=== PATIENT | female | born 1995 | race Hispanic/Latino ===

== ENCOUNTER → 2017-06-14 | Outpatient (CLI) | payer OTHER | LOC: M CARPUL 07:07 | DX: R06.02 Shortness of breath (principal) ==

== ENCOUNTER → 2017-07-06 | Outpatient (CLI) | payer OTHER ==
[~2017-07-06] MED LIST: METHACHOLINE KIT (J7674) INH
== END ==
LOC: M CARPUL 09:20
DX: R06.02 Shortness of breath (principal)

== ENCOUNTER 2017-09-15 11:29 | Emergency (ER) | payer OTHER ==
[2017-09-15] MEDS: LIDOCAINE 2% W/EPIN INJ 20ML **PRES FREE INJ (12:26)
== END 2017-09-15 13:00 | disposition home or self-care (01) ==
LOC: M ED 11:29
DX: S61.411A Laceration without foreign body of right hand, initial encounter (principal); W26.8XXA Contact with other sharp object(s), not elsewhere classified, initial encounter; Y92.89 Other specified places as the place of occurrence of the external cause
CPT/HCPCS: 12002

== ENCOUNTER 2017-11-12 11:16 | Day surgery (SDC) | payer OTHER ==
[~2017-11-12 11:16] MED LIST changes: +LIDOCAINE 2% INJ 100 MG/5 ML SDV (FOR ANES.) As Ordered; -METHACHOLINE KIT (J7674) INH; +PROPOFOL 200 MG/20 ML VIAL As Ordered
[2017-11-12] MEDS: NS 1,000 ML IV (11:27)
== END 2017-11-12 13:59 | disposition home or self-care (01) ==
LOC: M OPP 11:16
DX: K21.9 Gastro-esophageal reflux disease without esophagitis (principal); K29.70 Gastritis, unspecified, without bleeding; J45.909 Unspecified asthma, uncomplicated; Z79.899 Other long term (current) drug therapy
CPT/HCPCS: 43239

== ENCOUNTER 2018-03-27 19:31 | Emergency (ER) | payer OTHER ==
[2018-03-27] MEDS: NS 1,000 ML IV (20:14)
[2018-03-27] MEDS: ONDANSETRON 4MG/2ML VIAL (J2405) IV (20:18)
[2018-03-27] MEDS: MORPHINE 4 MG/ML 1ML VIAL/SYRINGE (J2270) IV (20:19)
[2018-03-27] MEDS: PANTOPRAZOLE 40MG TAB (PROTONIX) PO (20:24)
[2018-03-27] MEDS: ACETAMINOPHEN TAB 650MG DOSE (2X325MG) PO (20:24)
[2018-03-27 20:29] LABS: BASO % 0.2 % (0.0-1.0); EOS % 0.1 % (0.0-3.0); HEMATOCRIT 38.9 % (36.0-47.0); HEMOGLOBIN 13.7 g/dl (12.0-15.5); IMMATURE GRANULOCYTE % 0.3 % (0-3.0); LYMPH # 0.9 10^3/uL (1.5-6.5); LYMPH % 9.6 % (24.0-44.0); MEAN CORPUSCULAR HEMOGLOBIN 27.2 pg (27.0-33.0); MEAN CORPUSCULAR HGB CONC 35.2 g/dl (32.0-36.5); MEAN CORPUSCULAR VOLUME 77.2 fl (80.0-96.0); MONO # 0.8 10^3/uL (0.0-0.8); MONO % 8.1 % (0.0-5.0); NEUTROPHILS # 7.5 10^3/uL (1.8-7.7); NEUTROPHILS % 81.7 % (36.0-66.0); PLATELET COUNT, AUTOMATED 213 10^3/uL (150-450); RED BLOOD COUNT 5.04 10^6/uL (4.00-5.40); RED CELL DISTRIBUTION WIDTH 13.3 % (11.5-14.5); WHITE BLOOD COUNT 9.2 10^3/uL (4.0-10.0)
[2018-03-27 20:31] LABS: KETONE, URINE AUTO RFX NEGATIVE (NEGATIVE); LEUKOCYTE ESTERASE UR AUTO RFX NEGATIVE (NEGATIVE); MUCUS, URINE RFX SMALL (NEGATIVE); NITRITE, URINE AUTO RFX NEGATIVE (NEGATIVE); RBC, URINE AUTO RFX 1 /HPF (0-3); SPECIFIC GRAVITY UR AUTO RFX 1.015 (1.002-1.035); SQUAM EPITHELIAL CELL UR AURFX 1 /HPF (0-6); WBC, URINE AUTO RFX 0 /HPF (0-3)
[2018-03-27 21:02] LABS: ALBUMIN 3.6 GM/DL (3.2-5.2); ALBUMIN/GLOBULIN RATIO 1.13 (1.00-1.93); ALKALINE PHOSPHATASE 56 U/L (45-117); ALT/SGPT 20 U/L (12-78); ANION GAP 8 MEQ/L (8-16); AST/SGOT 12 U/L (7-37); BILIRUBIN,DIRECT 0.1 MG/DL (0.0-0.2); BILIRUBIN,TOTAL 0.3 MG/DL (0.2-1.0); BLOOD UREA NITROGEN 10 MG/DL (7-18); CALCIUM LEVEL 8.6 MG/DL (8.5-10.1); CARBON DIOXIDE LEVEL 26 MEQ/L (21-32); CHLORIDE LEVEL 104 MEQ/L (98-107); CREATININE FOR GFR 0.89 MG/DL (0.55-1.30); GLOMERULAR FILTRATION RATE > 60.0 (>60); GLUCOSE, FASTING 92 MG/DL (70-100); LIPASE 181 U/L (73-393); POTASSIUM SERUM 4.2 MEQ/L (3.5-5.1); SODIUM LEVEL 138 MEQ/L (136-145); TOTAL PROTEIN 6.8 GM/DL (6.4-8.2)
[2018-03-27] MEDS ORDERED: ISOVUE-370 76% 100ML VIAL (Q9967) As Ordered (21:03)
[2018-03-27 22:20] LABS: INFLUENZA A AMPLIFICATION NEGATIVE (NEGATIVE); INFLUENZA B AMPLIFICATION NEGATIVE (NEGATIVE)
[2018-03-27] MEDS: NORCO 5/325MG TABLET (BULK FOR ED) PO (22:38)
== END 2018-03-27 22:41 | disposition home or self-care (01) ==
LOC: M ED 19:31
DX: N83.201 Unspecified ovarian cyst, right side (principal)
CPT/HCPCS: J2270

== ENCOUNTER → 2018-04-15 | Outpatient (CLI) | payer OTHER ==
[~2018-04-15] MED LIST changes: +ADVA115A INH; +CETI10TA PO; +IBUP80TA PO; +ISOVUE-370 76% 100ML VIAL (Q9967) As Ordered ONE; -LIDOCAINE 2% INJ 100 MG/5 ML SDV (FOR ANES.) As Ordered; +MONT10TA2 PO; +NORCOTAB PO; +OMEP20CA3 PO; +PROAAER10 INH; -PROPOFOL 200 MG/20 ML VIAL As Ordered; +ZOFR4TAB14 PO
--- NOTE | 2018-04-16 07:32 | REP ---
REASON: Dyspnea. COMPARISON: None. CONTRAST: 100 mL Isovue 370. There is soft tissue density in the anterior mediastinum splaying the anterior junction line. There is no mediastinal or hilar adenopathy. There are no pleural or pericardial effusions. The imaged upper abdomen and imaged osseous structures are within normal limits. Evaluation of the lung cooper shows no abnormal nodules, masses, or opacities. IMPRESSION: Likely residual thymic tissue in the anterior mediastinum as described above which should be correlated clinically. Consider [address] Electronically Signed by Santino Ingram DO 04/16/2018 11:04 A
== END ==
LOC: M RAD 18:20
PROVIDERS: ATTEND Physician Assistant
DX: R05 Cough (principal); R06.09 Other forms of dyspnea
CPT/HCPCS: 71260; Q9967

== ENCOUNTER 2018-09-11 11:01 | Emergency (ER) | payer OTHER ==
[~2018-09-11] VITALS: Ht 167.6 cm; Wt 74.0 kg
[~2018-09-11 11:01] MED LIST changes: +HYDR-3715 PO; -ISOVUE-370 76% 100ML VIAL (Q9967) As Ordered ONE; -NORCOTAB PO
[2018-09-11 11:02] VITALS: BP 134/86
[2018-09-11] MEDS ORDERED: RANI150T14 PO (11:06)
[2018-09-11] MEDS ORDERED: CETI10CA2 PO (11:06)
[2018-09-11] MEDS ORDERED: IBUP80TA PO (11:43)
[2018-09-11] MEDS ORDERED: CLEO150C PO (11:43)
[2018-09-11] MEDS ORDERED: PERC5TAB12 PO ×3 (11:43→11:53)
== END 2018-09-11 11:58 | disposition home or self-care (01) ==
LOC: M ED 11:01
DX: R59.0 Localized enlarged lymph nodes (principal); J45.909 Unspecified asthma, uncomplicated; J30.2 Other seasonal allergic rhinitis; K21.9 Gastro-esophageal reflux disease without esophagitis; Z79.899 Other long term (current) drug therapy